=== PATIENT | male | born 2000 | race Caucasian/White ===

== ENCOUNTER 2024-08-25 12:48 | Inpatient (IN) | payer OTHER ==
[2024-08-25] MEDS ORDERED: ACETAMINOPHEN INJECTION 100 ML ONE (14:42)
[2024-08-25] MEDS ORDERED: ONDANSETRON 4 MG/2 ML VIAL ONE (14:42)
[2024-08-25] MEDS ORDERED: FAMOTIDINE 20 MG/50 ML IVPB 20 MG/50 ML MG IVPB ONE (14:42)
[2024-08-25] MEDS: ACETAMINOPHEN 1000 MG/100 ML BAG IVPB ONE ×2 (14:48→22:58)
[2024-08-25] MEDS: ONDANSETRON 4 MG/2 ML VIAL IVPUSH ONE (14:49)
[2024-08-25] MEDS: FAMOTIDINE 20 MG/50 ML IVPB 20 MG/50 ML MG IVPB ONE (14:49)
[2024-08-25 14:51] LABS: BASO % 0.3 % (0-2.0); EOS % 0.1 % (0-4.5); HEMATOCRIT 39.5 % (35.4-49); HEMOGLOBIN 13.3 GM/dL (11.7-16.9); LYMPH % 6.9 % (8-40); MCHC 33.7 g/dl (32.0-35.9); MEAN CELL VOLUME 80.1 fl (80-96); MEAN PLT VOLUME 7.3 fl (7.5-11.1); MONO % 3.7 % (3.8-10.2); PLATELET COUNT 239 10^3/uL (134-434); RBC 4.94 M/mm3 (4.00-5.60); RDW 13.9 % (11.9-15.9); WHITE BLOOD COUNT 16.2 K/mm3 (4.0-10.0)
[2024-08-25 15:07] LABS: POTASSIUM 4.1 mmol/L (3.5-5.1)
[2024-08-25 15:14] LABS: ALBUMIN 3.9 g/dl (3.4-5.0); BLOOD UREA NITROGEN 9.4 mg/dL (7-18); CALCIUM 9.5 mg/dL (8.5-10.1)
[2024-08-25 15:17] LABS: CREATININE 0.7 mg/dL (0.55-1.3)
[2024-08-25 15:18] LABS: BILIRUBIN,TOTAL 0.4 mg/dL (0.2-1); TOT PROT 8.7 g/dl (6.4-8.2)
[2024-08-25] MEDS ORDERED: CEFOXITIN SODIUM/DEXTROSE,ISO 2 GM/50 ML BAG IVPB ONE (18:15)
[2024-08-25] MEDS: SODIUM CHLORIDE 1,000 ML IV SCH (19:52)
[2024-08-25] MEDS: CEFOXITIN SODIUM 2 GM in DEXTROSE 5%-WATER - 100 ML IVPB ONE (19:52)
[2024-08-25] MEDS: PIPERACILLIN/TAZOB 3.375 GM 50 ML IVPB SCH (22:14)
[2024-08-25] MEDS ORDERED: PIPERACILLIN/TAZOB 3.375 GM 3.375 GM in DEXTROSE 5%-WATER - 50 ML IVPB SCH (22:30)
[2024-08-25 23:33] VITALS: BMI 48.2
[2024-08-26] MEDS ORDERED: ONDANSETRON 4 MG/2 ML VIAL IVPUSH PRN ×2 (01:29→14:49)
[2024-08-26 08:12] LABS: HEMATOCRIT 36.1 % (35.4-49); HEMOGLOBIN 11.9 GM/dL (11.7-16.9); MEAN CELL VOLUME 81.6 fl (80-96); MEAN PLT VOLUME 7.5 fl (7.5-11.1); PLATELET COUNT 222 10^3/uL (134-434); RBC 4.42 M/mm3 (4.00-5.60); RDW 13.6 % (11.9-15.9); WHITE BLOOD COUNT 9.7 K/mm3 (4.0-10.0)
[2024-08-26 08:28] LABS: POTASSIUM 3.7 mmol/L (3.5-5.1)
[2024-08-26 08:35] LABS: CALCIUM 8.7 mg/dL (8.5-10.1)
[2024-08-26 08:37] LABS: ALBUMIN 3.3 g/dl (3.4-5.0); BLOOD UREA NITROGEN 9.3 mg/dL (7-18)
[2024-08-26 08:39] LABS: CREATININE 0.7 mg/dL (0.55-1.3)
[2024-08-26 08:41] LABS: BILIRUBIN,TOTAL 0.6 mg/dL (0.2-1); TOT PROT 7.3 g/dl (6.4-8.2)
[2024-08-26] MEDS: ACETAMINOPHEN 1000 MG/100 ML BAG IVPB PRN (10:04)
[2024-08-26] MEDS: ENOXAPARIN NA (PORCINE) 40 MG/0.4 ML DISP.SYRIN SQ SCH ×2 (10:05→21:59)
[2024-08-26] MEDS ORDERED: BUPIVACAINE HCL/PF 0.25% (2.5MG/ML) 10 ML VIAL ONE (10:26)
[2024-08-26] MEDS ORDERED: SUCCINYLCHOLINE CHLORIDE 200 MG/10 ML SYRINGE ONE (12:55)
[2024-08-26] MEDS ORDERED: PROPOFOL 40 ML ONE (12:55)
[2024-08-26] MEDS ORDERED: MIDAZOLAM HCL 2 MG/2 ML SINGLE DOSE VIAL ONE (12:55)
[2024-08-26] MEDS ORDERED: ROCURONIUM BROMIDE 50 MG/5 ML SYRINGE ONE (12:55)
[2024-08-26] MEDS ORDERED: ONDANSETRON 4 MG/2 ML VIAL ONE (13:06)
[2024-08-26] MEDS ORDERED: DEXAMETHASONE SOD PHOSPHATE 4 MG/1 ML VIAL ONE (13:06)
[2024-08-26] MEDS ORDERED: oxyCODONE HCL 5 MG TABLET PO PRN (13:08)
[2024-08-26] MEDS: BUPIVACAINE HCL/PF 0.25% (2.5MG/ML) 10 ML VIAL IJ ONE (13:14)
[2024-08-26] MEDS: ceFAZolin SODIUM 1 GM VIAL IVPB ONE (13:14)
[2024-08-26] MEDS ORDERED: LACTATED RINGERS SOLUTION 1,000 ML IV SCH (13:15)
[2024-08-26] MEDS ORDERED: DEXMEDETOMIDINE HCL 200 MCG/2 ML IVPB ONE (13:20)
[2024-08-26] MEDS ORDERED: ACETAMINOPHEN INJECTION 100 ML ONE (13:20)
[2024-08-26] MEDS ORDERED: SUGAMMADEX SODIUM 200 MG/2 ML VIAL ONE ×2 (13:26)
[2024-08-26] MEDS: KETOROLAC TROMETHAMINE 30 MG/1 ML VIAL IVPUSH PRN (14:27)
[2024-08-26] MEDS: ACETAMINOPHEN 500 MG TABLET (FP) PO SCH ×2 (14:49→20:00)
[2024-08-26] MEDS ORDERED: KETOROLAC TROMETHAMINE 30 MG/1 ML VIAL IVPUSH PRN (14:49)
[2024-08-26] MEDS: IBUPROFEN 600 MG TABLET (FP) PO SCH (14:49)
[2024-08-26] MEDS ORDERED: PIPERACILLIN/TAZOBACTAM 3.375 GM VIAL IVPB ONE (15:05)
[2024-08-26] MEDS: PIPERACILLIN/TAZOB 3.375 GM 50 ML IVPB SCH ×2 (15:15→18:21)
[2024-08-27] MEDS: oxyCODONE HCL 5 MG TABLET PO PRN (06:11)
[2024-08-27 09:25] LABS: HEMATOCRIT 38.6 % (35.4-49); HEMOGLOBIN 12.8 GM/dL (11.7-16.9); MCH 26.9 pg (25.7-33.7); MCHC 33.2 g/dl (32.0-35.9); MEAN CELL VOLUME 81.2 fl (80-96); MEAN PLT VOLUME 7.3 fl (7.5-11.1); PLATELET COUNT 255 10^3/uL (134-434); RBC 4.75 M/mm3 (4.00-5.60); RDW 13.8 % (11.9-15.9); WHITE BLOOD COUNT 10.3 K/mm3 (4.0-10.0)
[2024-08-27 09:37] VITALS: BP 119/66; PULSE 65; RESP 17; TEMP 99
[2024-08-27 09:44] LABS: POTASSIUM 3.6 mmol/L (3.5-5.1)
[2024-08-27 09:47] LABS: BLOOD UREA NITROGEN 11.8 mg/dL (7-18)
[2024-08-27 09:50] LABS: CREATININE 0.7 mg/dL (0.55-1.3)
== END 2024-08-27 14:20 | disposition home or self-care (01) | DRG 225 ==
LOC: JER 12:48 → JERBED 18:03 → J6S 20:04
PROVIDERS: ADMIT Internal Medicine; ATTEND Internal Medicine
PROC: 0DTJ4ZZ Resection of Appendix, Percutaneous Endoscopic Approach (ICD-10-PCS; principal; 2024-08-26 12:00)
DX: K35.80 Unspecified acute appendicitis (principal); Z68.42 Body mass index [BMI] 45.0-49.9, adult; E66.01 Morbid (severe) obesity due to excess calories; R16.0 Hepatomegaly, not elsewhere classified; F12.90 Cannabis use, unspecified, uncomplicated; N20.0 Calculus of kidney; R11.2 Nausea with vomiting, unspecified; R61 Generalized hyperhidrosis; R73.9 Hyperglycemia, unspecified
CPT/HCPCS: 36415; 74177-TC; 76705-TC; 80048; 80053; 83036; 83690; 85025; 85027; 86850; 86900; 86901; 88304-TC; 93005; 93010; 94760; 99285-25; J0131; Q9967